=== PATIENT | female | born 1950 | race American Indian/Alaskan Native ===

== ENCOUNTER 2017-11-12 13:48 | Inpatient (IN) | payer BC, MEDICARE, OTHER ==
[2017-11-12 14:17] VITALS: BMI 21.9
--- NOTE | 2017-11-12 14:33 | C.PDOC ---
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 Patient was scheduled for chemotherapy this morning, but sent to ER. Patient is currently complaining of suprapubic abdominal pain and right lower extremity swelling for the past two days. States her leg is more swollen than usual, and has trouble wearing her shoe. She also notes associated dysuria, and 50-60lb weight loss over the past few months. Denies chest pain, shortness of breath, dizziness, numbness, headache, diarrhea, bloody stool, or any other associated symptoms. No other complaints at this time. Time Seen by Provider: 11/12/17 14:06 Chief Complaint (Nursing): Abdominal Pain History Per: Patient, Family History/Exam Limitations: no limitations Onset/Duration Of Symptoms: Days Current Symptoms Are (Timing): Still Present Severity: Moderate Past Medical History Reviewed: Historical Data, Nursing Documentation, Vital Signs Vital Signs: Last Vital Signs Temp 98.7 F 11/12/17 14:16 Pulse 83 11/12/17 15:55 Resp 18 11/12/17 15:55 BP 124/72 11/12/17 15:55 Pulse Ox 100 11/12/17 17:03 - Medical History PMH: HTN Surgical History: Denies: Pacemaker - [facility] Procedures BYPASS TRANSVERSE COLON TO CUTANEOUS, OPEN APPROACH (06/06/17) GAIT TRAINING/FUNCTIONAL AMBULATION TREATMENT (06/11/17) HOME MANAGEMENT TREATMENT (06/11/17) Family History: States: No Known Family Hx - Social History Hx Alcohol Use: No (SOCIAL USE ONLY-WINE) Hx Substance Use: No - Immunization History Hx Tetanus Toxoid Vaccination: No Hx Influenza Vaccination: No Hx Pneumococcal Vaccination: No Review Of Systems Constitutional: Positive for: Weakness, Other (loss of appetite). Negative for : Fever, Chills ENT: Negative for: Throat Pain Cardiovascular: Negative for: Chest Pain Respiratory: Negative for: Shortness of Breath Gastrointestinal: Positive for: Abdominal Pain. Negative for: Vomiting, Diarrhea Genitourinary: Positive for: Dysuria Musculoskeletal: Positive for: Other (right leg swell) Neurological: Negative for: Headache, Dizziness Physical Exam - Physical Exam Appears: Non-toxic, No Acute Distress Skin: Warm, Dry, No Rash, Other (Jaundice) Head: Atraumatic, Normacephalic Eye(s): bilateral: PERRL, EOMI, Scleral Icterus Nose: Normal Oral Mucosa: Moist Lips: Normal Appearing Neck: Normal ROM Chest: Symmetrical Cardiovascular: Rhythm Regular, No Murmur Respiratory: Normal Breath Sounds, No Accessory Muscle Use Gastrointestinal/Abdominal: Soft, Tenderness (Mild-moderate suprapubic), No Guarding, No Rebound, Other (Colostomy is clean, no erythema/discharge.) Extremity: Pedal Edema (2+pitting, B/L), No Deformity Neurological/Psych: Oriented x3, Normal Speech ED Course And Treatment - Laboratory Results Result Diagrams: 11/12/17 16:10 11/12/17 16:10 ECG: Interpreted By Me, Viewed By Me ECG Rhythm: Sinus Rhythm ECG Interpretation: No Acute Changes Rate From EC O2 Sat by Pulse Oximetry: 100 (RA) Pulse Ox Interpretation: Normal - Radiology CXR: Interpreted by Me, Viewed By Me CXR Interpretation: Yes: No Acute Disease. No: Infiltrates, Cardiomegaly, Pnemothorax Disposition Counseled Patient/Family Regarding: Studies Performed, Diagnosis - Disposition Disposition: HOSPITALIZED Disposition Time: 17:02 Condition: STABLE - POA Present On Arrival: None - Clinical Impression Clinical Impression: Hypokalemia, Failure to thrive - Scribe Statement The provider has reviewed the documentation as recorded by the Scribe (Xiao Rodriguez) All medical record entries made by the Scribe were at my direction and personally dictated by me. I have reviewed the chart and agree that the record accurately reflects my personal performance of the history, physical exam, medical decision making, and the department course for this patient. I have also personally directed, reviewed, and agree with the discharge instructions and disposition. Decision To Admit - Pt Status Changed To: Hospital Disposition Of: Observation - . Bed Request Type: Regular Admitting Physician: Yohan Carrillo Patient Diagnosis: Hypokalemia, Failure to thrive
[2017-11-12] MEDS ORDERED: Sodium Chloride 0.9% 250 ML IV ONE (16:14)
[2017-11-12 16:15] LABS: EOS % 0.3 % (0.0-4.0); HEMOGLOBIN 12.4 g/dL (11.0-16.0); LYMPH % 77.6 % (20.0-40.0); MEAN CORPUSCULAR HEMOGLOBIN 32.8 pg (27.0-31.0); MEAN CORPUSCULAR HGB CONC 36.1 g/dL (33.0-37.0); MEAN PLATELET VOLUME 7.7 fL (7.2-11.7); MONO # 0.2 K/uL (0.0-0.8); MONO % 14.5 % (0.0-10.0); NEUT # 0.1 K/uL (1.8-7.0); NEUT % 7.6 % (50.0-75.0); NRBC % 0.1 % (0.0-2.0); PLATELET COUNT 188 K/uL (130-400); RBC 3.79 Mil/uL (3.80-5.20); RED CELL DISTRIBUTION WIDTH 21.7 % (11.5-14.5)
[2017-11-12] MEDS ORDERED: Sodium Chloride 0.9% 500 ML IV ONE (16:26)
[2017-11-12 16:36] LABS: VENOUS BLOOD GAS BASE EXCESS -7.4 mmol/L (0.0-2.0); VENOUS BLOOD GAS PCO2 32 mmHg (40-60); VENOUS BLOOD GAS PO2 49 mm/Hg (30-55); VENOUS BLOOD PH 7.34 (7.32-7.43)
[2017-11-12 16:36] LABS: MEAN CELL VOLUME 90.9 fL (81.0-99.0); WHITE BLOOD COUNT 1.3 K/uL (4.8-10.8)
[2017-11-12 16:37] LABS: ALB/GLOB RATIO 0.7 (1.0-2.1); ALBUMIN 2.9 g/dL (3.5-5.0)
[2017-11-12] MEDS ORDERED: Potassium Chloride 20 mEq/15 ml LIQ UD PO STA (16:42)
--- NOTE | 2017-11-12 16:50 | RAD ---
PROCEDURE: CHEST RADIOGRAPH, 1 VIEW HISTORY: FAILURE TO THRIVE HO MET CA COMPARISON: None available. FINDINGS: LUNGS: Clear. PLEURA: No pneumothorax or pleural fluid seen. CARDIOVASCULAR: Normal heart size right central line tip approximate cavoatrial junction OSSEOUS STRUCTURES: No significant abnormalities. VISUALIZED UPPER ABDOMEN: Normal. OTHER FINDINGS: None. IMPRESSION: No acute cardiopulmonary pathology appreciated. Right central line apparent Port-A-Cath type tip cavoatrial junction. Pneumothorax
[2017-11-12 17:05] LABS: LYMPHOCYTE 22 % (20-40); MONOCYTE 4 % (0-10); NEUTROPHIL 74 % (50-75); TOTAL CELLS COUNTED 50
[2017-11-12 17:06] LABS: ANISOCYTOSIS SLIGHT; PLATELET ESTIMATE NORMAL (NORMAL); POIKILOCYTOSIS SLIGHT; TARGET CELLS SLIGHT
[2017-11-12 17:07] LABS: MICROCYTOSIS SLIGHT
[2017-11-12 17:16] LABS: SQUAMOUS EPITHIAL 4 /hpf (0-5); URINE BACTERIA RARE (<OCC)
[2017-11-12 17:17] LABS: URINE CLARITY SL HAZY (Clear); URINE COLOR YELLOW (YELLOW)
[2017-11-12 17:18] LABS: PH,URINE 6.5 (5.0-8.0); URINE BILIRUBIN LARGE (NEGATIVE); URINE BLOOD NEGATIVE (NEGATIVE); URINE GLUCOSE (UA) 100 mg/dL (Normal); URINE LEUKOCYTE ESTERASE MODERATE Leu/uL (Negative); URINE NITRATE NEGATIVE (NEGATIVE); URINE PROTEIN 30 mg/dL (NEGATIVE); URINE UROBILINOGEN 0.2 mg/dL (0.2-1.0)
[2017-11-12] MEDS ORDERED: Potassium Chloride 20 mEq/15 ml LIQ UD ONE (18:54)
[2017-11-12] MEDS ORDERED: Morphine 4 MG/ML VIAL ONE (19:13)
[2017-11-12] MEDS ORDERED: [UNRECOGNIZED DRUG - SUPPLY] MC PRN (20:56)
[2017-11-12] MEDS: Potassium Chl 40 mEq in D5-1/2 1,000 ML IV SCH (22:00)
--- NOTE | 2017-11-12 22:39 | CP.PCM.HP ---
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 Patient was scheduled for chemotherapy this morning, but sent to ER. Patient is currently complaining of suprapubic abdominal pain and right lower extremity swelling for the past two days. States her leg is more swollen than usual, and has trouble wearing her shoe. She also notes associated dysuria, and 50-60lb weight loss over the past few months. Denies chest pain, shortness of breath, dizziness, numbness, headache, diarrhea, bloody stool, or any other associated symptoms. No other complaints at this time. T Present on Admission - Present on Admission Any Indicators Present on Admission: Yes Review of Systems - Review of Systems Systems not reviewed;Unavailable: Acuity of Condition - Constitutional Constitutional: Fatigue, Lethargy, Weakness - EENT Eyes: absent: As Per HPI, Blind Spots, Blurred Vision, Change in Vision, Decreased Night Vision, Diplopia, Discharge, Dry Eye, Exophthalmos, Floaters, Irritation, Itchy Eyes, Loss of Peripheral Vision, Pain, Photophobia, Requires Corrective Lenses, Sees Flashes, Spots in Vision, Tunnel Vision, Other Visual Disturbances, Loss of Vision, Other - Cardiovascular Cardiovascular: Dyspnea, Dyspnea on Exertion - Gastrointestinal Gastrointestinal: absent: As Per HPI, Abdominal Pain, Belching, Bloating, Change in Bowel Habits, Change in Stool Character, Coffee Ground Emesis, Constipation, Cramping, Diarrhea, Dyspepsia, Dysphagia, Early Satiety, Excessive Flatus, Fecal Incontinence, Heartburn, Hematemesis, Hematochezia, Loose Stools, Melena, Nausea, Odynophagia, Temesmus, Vomiting, Other - Genitourinary Genitourinary: absent: As Per HPI, Change in Urinary Stream, Difficulty Urinating, Dysuria, Flank Pain, Hematuria, Pyuria, Nocturia, Urinary Incontinence, Urinary Frequency, Urinary Hesitance, Urinary Urgency, Voiding Freq/Small Amts, Freq UTI, Hx Renal/Bladder Calculi, Hx /Renal Surgery, Bladder Distension, Other Past Patient History - Infectious Disease Hx of Infectious Diseases: None - Past Social History Smoking Status: Former Smoker - CARDIAC Hx Hypertension: Yes Hx Pacemaker: No - NEUROLOGICAL Hx Paralysis: No - HEMATOLOGICAL/ONCOLOGICAL Hx Blood Transfusions: No Hx Blood Transfusion Reaction: No - MUSCULOSKELETAL/RHEUMATOLOGICAL Hx Falls: No - GASTROINTESTINAL Hx Gastrointestinal Disorders: Yes (06/09/17 lap colostomy) - GENITOURINARY/GYNECOLOGICAL Other/Comment: colon cancer on chemo - PSYCHIATRIC Hx Substance Use: No - SURGICAL HISTORY Hx Surgeries: Yes Hx Vascular Access Device: Yes (R chest port a cath) Other/Comment: 05/2017- abd sx- for bowel obstruction. partial colon removal sec to CA - ANESTHESIA Hx Anesthesia: Yes Hx Anesthesia Reactions: No Hx Malignant Hyperthermia: No Meds Allergies/Adverse Reactions: Allergies Allergy/AdvReac Type Severity Reaction Status Date / Time No Known Allergies Allergy Verified 11/12/17 14:00 Results - Vital Signs Recent Vital Signs: Last Vital Signs Temp 98.7 F 11/12/17 14:16 Pulse 98 H 11/12/17 19:21 Resp 21 11/12/17 19:21 BP 140/71 11/12/17 19:21 Pulse Ox 95 11/12/17 19:21 - Labs Result Diagrams: 11/12/17 16:10 11/12/17 16:10 Labs: Laboratory Results - last 24 hr 11/12/17 11/12/17 11/12/17 16:10 16:10 16:30 WBC 1.3 L* D RBC 3.79 L Hgb 12.4 Hct 34.4 MCV 90.9 D MCH 32.8 H MCHC 36.1 RDW 21.7 H Plt Count 188 MPV 7.7 Neut % (Auto) 7.6 L Lymph % (Auto) 77.6 H Hooker % (Auto) 14.5 H Eos % (Auto) 0.3 Baso % (Auto) 0.0 Neut # (Auto) 0.1 L Lymph # (Auto) 1.0 Hooker # (Auto) 0.2 Eos # (Auto) 0.0 Baso # (Auto) 0.0 Neutrophils % (Manual) 74 Lymphocytes % (Manual) 22 Monocytes % (Manual) 4 Platelet Estimate Normal Poikilocytosis (manual Slight Anisocytosis (manual) Slight Microcytosis (manual) Slight Target Cells Slight pO2 49 VBG pH 7.34 VBG pCO2 32 L VBG HCO3 18.7 VBG Total CO2 18.3 L VBG O2 Sat (Calc) 88.2 H VBG Base Excess -7.4 L VBG Potassium 2.4 L* Glucose 100 Lactate 1.4 Crit Value Called To Nurse bam Crit Value Called By Mikey rt Crit Value Read Back Y Blood Gas Notified Time 1635 Sodium 134 135.0 Potassium 2.4 L* Chloride 104 104.0 Carbon Dioxide 15 L Anion Gap 17 BUN 43 H Creatinine 1.1 Est GFR ( Amer) 60 Est GFR (Non-Af Amer) 49 Random Glucose 97 Calcium 9.0 Total Bilirubin 36.1 H AST 542 H D ALT 284 H D Alkaline Phosphatase 2887 H Total Protein 6.8 Albumin 2.9 L D Globulin 3.9 Albumin/Globulin Ratio 0.7 L Venous Blood Potassium 2.4 L* Urine Color Urine Clarity Urine pH Ur Specific [place] Urine Protein Urine Glucose (UA) Urine Ketones Urine Blood Urine Nitrate Urine Bilirubin Urine Urobilinogen Ur Leukocyte Esterase Urine WBC (Auto) Urine RBC (Auto) Ur Squamous Epith Cells Urine Bacteria 11/12/17 16:55 WBC RBC Hgb Hct MCV MCH MCHC RDW Plt Count MPV Neut % (Auto) Lymph % (Auto) [place] % (Auto) Eos % (Auto) Baso % (Auto) Neut # (Auto) Lymph # (Auto) [place] # (Auto) Eos # (Auto) Baso # (Auto) Neutrophils % (Manual) Lymphocytes % (Manual) Monocytes % (Manual) Platelet Estimate Poikilocytosis (manual Anisocytosis (manual) Microcytosis (manual) Target Cells pO2 VBG pH VBG pCO2 VBG HCO3 VBG Total CO2 VBG O2 Sat (Calc) VBG Base Excess VBG Potassium Glucose Lactate Crit Value Called To Crit Value Called By Crit Value Read Back Blood Gas Notified Time Sodium Potassium Chloride Carbon Dioxide Anion Gap BUN Creatinine Est GFR ( Amer) Est GFR (Non-Af Amer) Random Glucose Calcium Total Bilirubin AST ALT Alkaline Phosphatase Total Protein Albumin Globulin Albumin/Globulin Ratio Venous Blood Potassium Urine Color Yellow Urine Clarity Sl hazy Urine pH 6.5 Ur Specific [place] 1.010 Urine Protein 30 Urine Glucose (UA) 100 Urine Ketones Negative Urine Blood Negative Urine Nitrate Negative Urine Bilirubin Large Urine Urobilinogen 0.2 Ur Leukocyte Esterase Moderate Urine WBC (Auto) 18 H Urine RBC (Auto) 1 Ur Squamous Epith Cells 4 Urine Bacteria Rare Assessment & Plan (1) Weight loss Status: Acute (2) Failure to thrive Status: Acute (3) Hypokalemia Status: Acute (4) S/P colostomy Status: Acute
[2017-11-13] MEDS: Morphine 4 MG/ML VIAL IVP PRN (06:32)
[2017-11-13] MEDS: Potassium Chl 40 mEq in D5-1/2 1,000 ML IV SCH ×2 (07:00→10:30)
--- NOTE | 2017-11-13 11:03 | VASCLAB ---
PROCEDURE: Right Lower Extremity Venous Duplex Exam. HISTORY: SWELLING HO CANCER PRIORS: None. TECHNIQUE: Right common femoral, femoral, popliteal and posterior tibial, peroneal and great saphenous veins were evaluated. Flow was assessed with color Doppler, compressibility, assessment of phasic flow and augmentation response. Report prepared by ORLY Webb, RVT FINDINGS: RIGHT: 1. Common Femoral Vein: 1.1. Compressibility - Fully compressible: Thrombus - None: Flow - Phasic: Augmentation -Normal: Reflux - None. 2. Femoral Vein: 2.1. Compressibility - Fully compressible: Thrombus - None: Flow - Phasic: Augmentation -Normal: Reflux - None. 3. Popliteal Vein: 3.1. Compressibility - Fully compressible: Thrombus - None: Flow - Phasic: Augmentation -Normal: Reflux - None. 4. Posterior Tibial Vein: 4.1. Compressibility - Fully compressible: Thrombus - None: Flow - Phasic: Augmentation -Normal: Reflux - None. 5. Peroneal Vein: 5.1. Compressibility - Fully compressible: Thrombus - None: Flow - Phasic: Augmentation -Normal: Reflux - None. 6. Great Saphenous Vein: 6.1. Compressibility - Fully compressible: Thrombus -None: Flow - Phasic: Augmentation - Normal: Reflux - None. OTHER FINDINGS: IMPRESSION: No evidence of deep or superficial vein thrombosis of the right lower extremity with excellent venous flow. Normal valve function noted of the right side. Normal venous flow noted in the left common femoral vein.
[2017-11-13 12:08] LABS: HEMOGLOBIN 12.2 g/dL (11.0-16.0); MEAN CELL VOLUME 90.6 fL (81.0-99.0); MEAN CORPUSCULAR HEMOGLOBIN 32.3 pg (27.0-31.0); MEAN CORPUSCULAR HGB CONC 35.6 g/dL (33.0-37.0); MEAN PLATELET VOLUME 7.8 fL (7.2-11.7); RBC 3.78 Mil/uL (3.80-5.20); RED CELL DISTRIBUTION WIDTH 21.8 % (11.5-14.5)
[2017-11-13 12:09] LABS: ALB/GLOB RATIO 0.7 (1.0-2.1); ALBUMIN 2.7 g/dL (3.5-5.0); ALT/SGPT 284 U/L (9-52); AST/SGOT 566 U/L (14-36); BLOOD UREA NITROGEN 37 mg/dL (7-17); CALCIUM 9.3 mg/dl (8.6-10.4); GFR AFRICAN-AMERICAN 60; GFR NON-AFRICAN AMERICAN 49
[2017-11-13 12:19] LABS: WHITE BLOOD COUNT 0.8 K/uL (4.8-10.8)
[2017-11-13] MEDS ORDERED: Vancomycin 1 gm/NS 200 ml 1 GM/200 ML BAG IVPB STA (18:12)
[2017-11-13] MEDS: Potassium Ch 20mEq in D5-1/2NS 1,000 ML IV SCH (18:15)
--- NOTE | 2017-11-13 19:21 | CARD ---
APPROVED REPORT EKG Measurement Heart [id number] <Conclusion> Normal sinus rhythm Prolonged QT Abnormal ECG
[2017-11-13] MEDS: Cefepime IV 1 gm in Dextrose 1 GM/50 ML BAG IVPB SCH (19:35)
--- NOTE | 2017-11-13 22:29 | CP.PCM.PN ---
Subjective - Date & Time of Evaluation Date of Evaluation: 11/13/17 Time of Evaluation: 19:40 - Subjective Subjective: Pt seen and examined, pt is weak and lethargic, compaing of chills, rigors, wbc , potassium deranged Objective - Vital Signs/Intake and Output Vital Signs (last 24 hours): Temp Pulse Resp BP Pulse Ox 98.2 F 87 20 118/77 99 11/13/17 16:00 11/13/17 16:00 11/13/17 16:00 11/13/17 16:00 11/13/17 16:00 Intake and Output: 11/13/17 11/14/17 18:59 06:59 Intake Total 1000 Balance 1000 - Medications Medications: Current Medications Heparin Sodium (Porcine) (Heparin) 5,000 units SC Q12 [facility] Last Admin: 11/13/17 21:56 Dose: 5,000 units Potassium Chloride/Dextrose/Sod Cl (Potassium Chl 20 Meq In D5-1/2ns) 1,000 mls @ 100 mls/hr IV .Q10H [facility] Last Admin: 11/13/17 18:15 Dose: 100 mls/hr Cefepime HCl (Maxipime Iv 1 Gm Premix) 1 gm in 50 mls @ 100 mls/hr IVPB Q8H [facility] Last Admin: 11/13/17 19:35 Dose: 100 mls/hr Vancomycin/Sodium Chloride (Vancomycin 1 Gm/Ns 200 Ml) 1 gm in 200 mls @ 133.333 mls/hr IVPB Q12H [facility] Stop: 11/19/17 06:31 Morphine Sulfate (Morphine) 2 mg IVP Q4 PRN PRN Reason: Pain, moderate (4-7) Last Admin: 11/13/17 06:32 Dose: 2 mg - Labs Labs: 11/13/17 11:46 11/13/17 11:46 - Constitutional Appears: Chronically Ill - Head Exam Head Exam: ATRAUMATIC, NORMAL INSPECTION, NORMOCEPHALIC - Eye Exam Eye Exam: EOMI, Normal appearance, PERRL Pupil Exam: NORMAL ACCOMODATION, PERRL - Respiratory Exam Respiratory Exam: Clear to Ausculation Bilateral, NORMAL BREATHING PATTERN - Cardiovascular Exam Cardiovascular Exam: REGULAR RHYTHM, +S1, +S2. absent: Murmur Assessment and Plan (1) Weight loss Status: Acute (2) Failure to thrive Status: Acute (3) Hypokalemia Status: Acute (4) S/P colostomy Status: Acute (5) Liver metastases Status: Acute - Assessment and Plan (Free Text) Plan: rule out sepsis reverse isolation medical managment Iv flids
[2017-11-14] MEDS: Cefepime IV 1 gm in Dextrose 1 GM/50 ML BAG IVPB SCH ×3 (03:05→18:31)
[2017-11-14] MEDS: Morphine 4 MG/ML VIAL IVP PRN (03:24)
[2017-11-14] MEDS: Potassium Ch 20mEq in D5-1/2NS 1,000 ML IV SCH ×3 (04:08→13:30)
[2017-11-14] MEDS: Vancomycin 1 gm/NS 200 ml 1 GM/200 ML BAG IVPB SCH ×2 (05:32→18:31)
[2017-11-14 07:45] LABS: HEMOGLOBIN 12.5 g/dL (11.0-16.0); MEAN CELL VOLUME 90.2 fL (81.0-99.0); MEAN CORPUSCULAR HEMOGLOBIN 32.2 pg (27.0-31.0); MEAN CORPUSCULAR HGB CONC 35.7 g/dL (33.0-37.0); MEAN PLATELET VOLUME 8.3 fL (7.2-11.7); RBC 3.87 Mil/uL (3.80-5.20); RED CELL DISTRIBUTION WIDTH 22.1 % (11.5-14.5)
[2017-11-14 07:53] LABS: WHITE BLOOD COUNT 1.2 K/uL (4.8-10.8)
[2017-11-14 08:23] LABS: CALCIUM 9.4 mg/dl (8.6-10.4)
[2017-11-14] MEDS ORDERED: Potassium Chloride 20 mEq/15 ml LIQ UD PO STA (15:51)
[2017-11-14] MEDS ORDERED: Potassium Chloride 20 mEq/15 ml LIQ UD PO ONE (18:15)
--- NOTE | 2017-11-15 00:02 | CP.PCM.PN ---
Subjective - Date & Time of Evaluation Date of Evaluation: 11/14/17 Time of Evaluation: 19:25 - Subjective Subjective: Patient seen & evaluated at bedside, pt is feeling better, c/o right upper quadrant pain, her potasium is corrected, pt is weak, appetite is poor Objective - Vital Signs/Intake and Output Vital Signs (last 24 hours): Temp Pulse Resp BP Pulse Ox 97.8 F 90 20 106/73 99 11/14/17 16:00 11/14/17 16:00 11/14/17 16:00 11/14/17 16:00 11/14/17 16:00 Intake and Output: 11/14/17 11/15/17 18:59 06:59 Intake Total 940 Balance 940 - Medications Medications: Current Medications Heparin Sodium (Porcine) (Heparin) 5,000 units SC Q12 [facility] Last Admin: 11/14/17 21:22 Dose: 5,000 units Potassium Chloride/Dextrose/Sod Cl (Potassium Chl 20 Meq In D5-1/2ns) 1,000 mls @ 100 mls/hr IV .Q10H [facility] Last Admin: 11/14/17 13:30 Dose: Not Given Cefepime HCl (Maxipime Iv 1 Gm Premix) 1 gm in 50 mls @ 100 mls/hr IVPB Q8H [facility] Last Admin: 11/14/17 18:31 Dose: 100 mls/hr Vancomycin/Sodium Chloride (Vancomycin 1 Gm/Ns 200 Ml) 1 gm in 200 mls @ 133.333 mls/hr IVPB Q12H [facility] Stop: 11/19/17 06:31 Last Admin: 11/14/17 18:31 Dose: 133.333 mls/hr Morphine Sulfate (Morphine) 2 mg IVP Q4 PRN PRN Reason: Pain, moderate (4-7) Last Admin: 11/14/17 03:24 Dose: 2 mg - Labs Labs: 11/14/17 07:27 11/14/17 07:27 - Constitutional Appears: No Acute Distress - Head Exam Head Exam: ATRAUMATIC, NORMAL INSPECTION, NORMOCEPHALIC - Eye Exam Eye Exam: EOMI, Normal appearance, PERRL Pupil Exam: NORMAL ACCOMODATION, PERRL - Respiratory Exam Respiratory Exam: Decreased Breath Sounds, Rales, Rhonchi - Cardiovascular Exam Cardiovascular Exam: REGULAR RHYTHM, +S1, +S2. absent: Murmur - GI/Abdominal Exam GI & Abdominal Exam: Tenderness, Hypoactive Bowel Sounds Assessment and Plan (1) Weight loss Status: Acute (2) Failure to thrive Status: Acute (3) Hypokalemia Status: Acute (4) S/P colostomy Status: Acute (5) Liver metastases Status: Acute
[2017-11-15] MEDS: Potassium Ch 20mEq in D5-1/2NS 1,000 ML IV SCH ×4 (02:06→23:39)
[2017-11-15] MEDS: Cefepime IV 1 gm in Dextrose 1 GM/50 ML BAG IVPB SCH ×2 (02:32→11:14)
[2017-11-15] MEDS: Vancomycin 1 gm/NS 200 ml 1 GM/200 ML BAG IVPB SCH (05:29)
[2017-11-15 07:52] LABS: HEMOGLOBIN 12.3 g/dL (11.0-16.0); MEAN CELL VOLUME 91.9 fL (81.0-99.0); MEAN CORPUSCULAR HEMOGLOBIN 32.8 pg (27.0-31.0); MEAN CORPUSCULAR HGB CONC 35.6 g/dL (33.0-37.0); MEAN PLATELET VOLUME 8.6 fL (7.2-11.7); RBC 3.76 Mil/uL (3.80-5.20)
[2017-11-15 07:53] LABS: CALCIUM 9.4 mg/dl (8.6-10.4)
[2017-11-15 08:00] LABS: WHITE BLOOD COUNT 1.1 K/uL (4.8-10.8)
--- NOTE | 2017-11-15 11:39 | CP.PCM.PN ---
Subjective - Date & Time of Evaluation Date of Evaluation: 11/15/17 Time of Evaluation: 14:00 - Subjective Subjective: pt seen & evalauted at bedside Objective - Vital Signs/Intake and Output Vital Signs (last 24 hours): Temp Pulse Resp BP Pulse Ox 97.6 F 91 H 20 105/69 99 11/15/17 07:47 11/15/17 07:47 11/15/17 07:47 11/15/17 07:47 11/15/17 07:47 Intake and Output: 11/15/17 11/15/17 06:59 18:59 Intake Total 920 Output Total 20 Balance 900 - Medications Medications: Current Medications Heparin Sodium (Porcine) (Heparin) 5,000 units SC Q12 [facility] Last Admin: 11/15/17 11:14 Dose: 5,000 units Potassium Chloride/Dextrose/Sod Cl (Potassium Chl 20 Meq In D5-1/2ns) 1,000 mls @ 100 mls/hr IV .Q10H [facility] Last Admin: 11/15/17 02:34 Dose: 100 mls/hr Cefepime HCl (Maxipime Iv 1 Gm Premix) 1 gm in 50 mls @ 100 mls/hr IVPB Q8H [facility] Last Admin: 11/15/17 11:14 Dose: 100 mls/hr Vancomycin/Sodium Chloride (Vancomycin 1 Gm/Ns 200 Ml) 1 gm in 200 mls @ 133.333 mls/hr IVPB Q12H [facility] Stop: 11/19/17 06:31 Last Admin: 11/15/17 05:29 Dose: 133.333 mls/hr Morphine Sulfate (Morphine) 2 mg IVP Q4 PRN PRN Reason: Pain, moderate (4-7) Last Admin: 11/14/17 03:24 Dose: 2 mg - Labs Labs: 11/15/17 07:11 11/15/17 07:11 Assessment and Plan (1) Weight loss Status: Acute (2) Failure to thrive Status: Acute (3) Hypokalemia Status: Acute (4) S/P colostomy Status: Acute (5) Liver metastases Status: Acute
[2017-11-15] MEDS: Morphine 4 MG/ML VIAL IVP PRN ×2 (15:12→19:42)
[2017-11-16] MEDS: Potassium Ch 20mEq in D5-1/2NS 1,000 ML IV SCH ×2 (06:23→16:55)
[2017-11-16 07:17] LABS: HEMOGLOBIN 11.1 g/dL (11.0-16.0); MEAN CELL VOLUME 91.4 fL (81.0-99.0); MEAN CORPUSCULAR HEMOGLOBIN 32.7 pg (27.0-31.0); MEAN CORPUSCULAR HGB CONC 35.8 g/dL (33.0-37.0); MEAN PLATELET VOLUME 8.7 fL (7.2-11.7); RBC 3.38 Mil/uL (3.80-5.20); RED CELL DISTRIBUTION WIDTH 21.3 % (11.5-14.5)
[2017-11-16 07:20] LABS: WHITE BLOOD COUNT 0.6 K/uL (4.8-10.8)
[2017-11-16 08:34] LABS: CALCIUM 9.3 mg/dl (8.6-10.4)
--- NOTE | 2017-11-16 09:37 | CON ---
DATE: 11/13/2017 ONCOLOGY CONSULTATION HISTORY OF PRESENT ILLNESS: This is a 67-year-old, who I have been treating for colon cancer for the last 5 years. She presented 5 years ago with colon cancer, metastatic to liver and to her lungs; and over the last 5 years, she received many kinds of chemotherapy. She also received radiofrequency ablation for several lesions in the liver. This was done about 2-1/2 to 3 years ago. Basically, in the last few months, she has had progressive cancer in her liver, in her lungs and we changed her chemotherapy recently, but this is proved to be ineffective furthermore. About 6 months ago, she had emergency surgery for progressive cancer in her pelvis with an obstruction, so she has progressive cancer at this point. She came to the office yesterday with neon yellow eyes and marked weakness, she can barely stand up, she is so dehydrated and weak, and we admitted her to the hospital. Her blood tests are remarkable for several things. Her pO2 on blood gas was 49, pH was 7.34 acidotic with severe decreased oxygen levels. LABORATORY DATA: Her labs showed a potassium of 2.4, BUN of 43 with a creatinine of 1.1, bilirubin is , AST is 524, ALT 280, alkaline phosphatase 2800. She has had a CAT scan before to rule out biliary obstruction, but she has progressive cancer in liver as well, as well as paraaortic lymph nodes. Her white count is 1.3 with markedly decreased neutrophils, this is probably secondary to her chemotherapy that she received. Hemoglobin 12.4 secondary to dehydration, higher than it should be. She has an asterixis. PHYSICAL EXAMINATION: SKIN: No petechiae. No bruises. HEENT: Shows neon icterus. NODES: Nonpalpable in the axillary, cervical, supraclavicular or inguinal regions. LUNGS: Pretty clear at present, though some scattered wheezing. HEART: S1 and S2. ABDOMEN: Shows distended liver. EXTREMITIES: +2 edema. CENTRAL NERVOUS SYSTEM: The patient has asterixis. She knows who I am, she can barely speak. She is just lying in bed, profoundly weak, not able to eat at all. ASSESSMENT: I spoke with the yesterday in the office and I feel that she is terminal that I do not feel she is going to live very much longer, that there is no more chemotherapy available and then when she gets to the hospital, they have to discuss terminal care provisions and hospice and I have recommended that at this point. I will give her IV hydration to bring down the BUN, but I think at this point she is considered terminal and they will go hospice, and the is aware of this and agrees with me. Shane Apodaca MD
[2017-11-16] MEDS: Morphine 4 MG/ML VIAL IVP PRN ×2 (09:43→18:29)
[2017-11-16] MEDS ORDERED: Influenza Vaccine 60 mcg/0.5 mL SYR (4YR UP) IM ONE (10:00)
--- NOTE | 2017-11-16 11:18 | CP.PCM.CON ---
History of Present Illness - History of Present Illness History of Present Illness: Palliative consult requested by for the goals of care discussion and possible hospice placement. Patient is 67 years old -[place] lady admitted from Dr. Apodaca office where was found to be generally weak. On admission patient complained of suprapubic pain, right lower extremities edema,and it was reported weight loss of 50-60 pounds over the 2-3 months. Patient also complained of nausea and poor appetite. Patient was found with white blood count of 0.6 and placed on reversed contact isolation. Dr. Apodaca suggested the comfort care and the family meeting was held today. Past medical history: colon cancer in 2013 minutes to believe ,Metastases to the liver, hypertension, colostomy creation Social history : lives alone, single, for more siblings, 2 sisters in [place], 2 brothers here in [place], Family history: denied cancer in the family, mother with high blood pressure, both parents Review of Systems - Review of Systems All systems: reviewed and no additional remarkable complaints except Review of Systems: review of system obtained from From nursing due to patient's lethargy.Per nursing patients remained weak with poor appetite, daytime sleepiness Past Patient History - Infectious Disease Hx of Infectious Diseases: None - Past Medical History & Family History Past Medical History?: Yes - Past Social History Smoking Status: Former Smoker - CARDIAC Hx Hypertension: Yes Hx Pacemaker: No - NEUROLOGICAL Hx Paralysis: No - HEMATOLOGICAL/ONCOLOGICAL Hx Blood Transfusions: No Hx Blood Transfusion Reaction: No - MUSCULOSKELETAL/RHEUMATOLOGICAL Hx Falls: No - GASTROINTESTINAL Hx Gastrointestinal Disorders: Yes (06/09/17 lap colostomy) - GENITOURINARY/GYNECOLOGICAL Other/Comment: colon cancer on chemo - PSYCHIATRIC Hx Substance Use: No - SURGICAL HISTORY Hx Surgeries: Yes Hx Vascular Access Device: Yes (R chest port a cath) Other/Comment: 05/2017- abd sx- for bowel obstruction. partial colon removal sec to CA - ANESTHESIA Hx Anesthesia: Yes Hx Anesthesia Reactions: No Hx Malignant Hyperthermia: No Meds Allergies/Adverse Reactions: Allergies Allergy/AdvReac Type Severity Reaction Status Date / Time No Known Allergies Allergy Verified 11/12/17 14:00 - Medications Medications: Current Medications Potassium Chloride/Dextrose/Sod Cl (Potassium Chl 20 Meq In D5-1/2ns) 1,000 mls @ 100 mls/hr IV .Q10H [facility] Last Admin: 11/16/17 06:23 Dose: 100 mls/hr Morphine Sulfate (Morphine) 2 mg IVP Q4 PRN PRN Reason: Pain, moderate (4-7) Last Admin: 11/16/17 09:43 Dose: 2 mg Physical Exam - Constitutional Appears: No Acute Distress, Chronically Ill - Head Exam Head Exam: ATRAUMATIC, NORMAL INSPECTION, NORMOCEPHALIC - Eye Exam Eye Exam: EOMI, Normal appearance Pupil Exam: NORMAL ACCOMODATION, PERRL - ENT Exam ENT Exam: Mucous Membranes Dry - Neck Exam Neck exam: Positive for: Normal Inspection - Respiratory Exam Respiratory Exam: Decreased Breath Sounds, NORMAL BREATHING PATTERN - GI/Abdominal Exam Additional comments: Stoma in situ, bulging, colostomy appliances in place - Rectal Exam Rectal Exam: Deferred - Extremities Exam Additional comments: right leg edema - Back Exam Back exam: NORMAL INSPECTION - Neurological Exam Neurological exam: Alert, Altered, Motor Sensory Deficit - Psychiatric Exam Psychiatric exam: Flat Affect - Skin Skin Exam: Pallor Results - Vital Signs Recent Vital Signs: Last Vital Signs Temp 97.4 F L 11/16/17 08:19 Pulse 88 11/16/17 08:19 Resp 20 11/16/17 08:19 BP 99/67 L 11/16/17 08:19 Pulse Ox 95 11/16/17 08:19 - Labs Result Diagrams: 11/16/17 06:58 11/16/17 06:58 Labs: Laboratory Results - last 24 hr 11/16/17 11/16/17 06:58 06:58 WBC 0.6 L* RBC 3.38 L Hgb 11.1 Hct 30.9 L MCV 91.4 MCH 32.7 H MCHC 35.8 RDW 21.3 H Plt Count 119 L D MPV 8.7 Sodium 139 Potassium 3.5 L Chloride 115 H Carbon Dioxide 13 L Anion Gap 15 BUN 44 H Creatinine 1.9 H Est GFR ( Amer) 32 Est GFR (Non-Af Amer) 26 Random Glucose 80 Calcium 9.3 Assessment & Plan - Assessment and Plan (Free Text) Assessment: palliative consult Called status before consult was a 4 cold.The PPS 10%. There is no advanced directive on chart. I reviewed medical records, all diagnostic studies, EXAMINED PATIENT IN THE BED, DISCUSSED HER CONDITION WITH INSIDE SALES ASSISTANT, AND held FAMILY meeting for goals of care discussion. Patient is alert but looks tired and very sleepy. Patient was able to her knowledge my presence by noddi but never opened her eyes and had not eaten her breakfast. The physical exam reveals chronic calyceal patient. There is no acute distress. Breath sounds are diminished. No cough noted. The oral mucosa is very GI. Abdomen is softly distended with colostomy in place. The stoma is bulging annulus functioning. Bowel sounds are decreased. Nursing patiey poor appetite and barmething.There is edema to the right leg. patient denies painWhite blood count 0.6, hemoglobin 11.1, platelets 119, potassium 3.4 and is being replaced, BUN 44, creatinine 1.9, ALP and AST are elevated. Blood pressure remains low 99/67. Temperature 97.4. Oxygen saturation 95% on room air. Family meeting held today for goals of care discussion. Family meeting was attended by 2 brothers and 2 sisters, and myself. The 2 sisters live in [place] and they came just to visit the patient. 2 brothers leave in [place] and they are visiting patient more often. The family chose one of the brothers, Mr. Platt be a spoke person for the family. His contact contact # [phone]. I reviewed patient's present medical condition and elicited families knowledge about patient's condition. Family stated they talked to and were made aware about patient's terminal condition and very poor prognosis. Family was very united in their wishes to keep the patient comfortable at these last stage of life. I offered more information about the hospice care. Family admitted it was level of care they would like for the patient. We discussed different placement for the hospice care, home hospice versus hospice at the facility. [facility] due to the patient leaves home alone and they are not able to help her with her care. We discussed the CODE STATUS. Family was very clear that they wouldn't want any aggressive treatment interventions for this patient. I discussed meaning of the CODE status and offered more information about the POLST Family chose the DNR/DNI. I provided the family with a copy of that POLST. I discussed this with Tabitha from case management.She was to continue discussion about the placement at the [facility] and to call the hospice for the hospice evaluation. This was shared with Dr. Carrillo Advanced care discussion, 45 minutes. Thank you very much for consultation the palliative care.
--- NOTE | 2017-11-16 22:56 | CP.PCM.PN ---
Subjective - Date & Time of Evaluation Date of Evaluation: 11/16/17 Time of Evaluation: 21:00 - Subjective Subjective: Pt seen and evalauted by palliative care too, pt is terminal and she is for hospice Objective - Vital Signs/Intake and Output Vital Signs (last 24 hours): Temp Pulse Resp BP Pulse Ox 97.4 F L 87 20 99/64 L 98 11/16/17 15:00 11/16/17 15:00 11/16/17 15:00 11/16/17 15:00 11/16/17 15:00 Intake and Output: 11/16/17 11/17/17 18:59 06:59 Intake Total 850 Balance 850 - Medications Medications: Current Medications Potassium Chloride/Dextrose/Sod Cl (Potassium Chl 20 Meq In D5-1/2ns) 1,000 mls @ 100 mls/hr IV .Q10H [facility] Last Admin: 11/16/17 16:55 Dose: Not Given Morphine Sulfate (Morphine) 2 mg IVP Q4 PRN PRN Reason: Pain, moderate (4-7) Last Admin: 11/16/17 18:29 Dose: 2 mg - Labs Labs: 11/16/17 06:58 11/16/17 06:58 - Constitutional Appears: Chronically Ill - Head Exam Head Exam: ATRAUMATIC, NORMOCEPHALIC - Eye Exam Eye Exam: EOMI, Normal appearance, PERRL Pupil Exam: NORMAL ACCOMODATION, PERRL - Respiratory Exam Respiratory Exam: Decreased Breath Sounds, Rales, Rhonchi - Cardiovascular Exam Cardiovascular Exam: REGULAR RHYTHM, +S1, +S2. absent: Murmur - GI/Abdominal Exam GI & Abdominal Exam: Distended, Soft, Tenderness, Normal Bowel Sounds - Rectal Exam Rectal Exam: Deferred Assessment and Plan (1) Weight loss Status: Acute (2) Failure to thrive Status: Acute (3) Hypokalemia Status: Acute (4) S/P colostomy Status: Acute (5) Liver metastases Status: Acute
[2017-11-17] MEDS: Potassium Ch 20mEq in D5-1/2NS 1,000 ML IV SCH ×5 (02:25→21:44)
[2017-11-17] MEDS: Morphine 4 MG/ML VIAL IVP PRN ×3 (02:57→21:16)
--- NOTE | 2017-11-17 23:01 | CP.PCM.PN ---
Subjective - Date & Time of Evaluation Date of Evaluation: 11/17/17 Time of Evaluation: 18:40 - Subjective Subjective: Pt seen and evaluated at bedside today Objective - Vital Signs/Intake and Output Vital Signs (last 24 hours): Temp Pulse Resp BP Pulse Ox 97 F L 90 20 77/58 L 95 11/17/17 16:09 11/17/17 16:09 11/17/17 16:09 11/17/17 16:09 11/17/17 16:09 Intake and Output: 11/17/17 11/18/17 18:59 06:59 Intake Total 825 800 Balance 825 800 - Medications Medications: Current Medications Potassium Chloride/Dextrose/Sod Cl (Potassium Chl 20 Meq In D5-1/2ns) 1,000 mls @ 100 mls/hr IV .Q10H [facility] Last Admin: 11/17/17 21:44 Dose: Not Given Morphine Sulfate (Morphine) 2 mg IVP Q4 PRN PRN Reason: Pain, moderate (4-7) Last Admin: 11/17/17 21:16 Dose: 2 mg - Labs Labs: 11/16/17 06:58 11/16/17 06:58 Assessment and Plan (1) Weight loss Status: Acute (2) Failure to thrive Status: Acute (3) Hypokalemia Status: Acute (4) S/P colostomy Status: Acute (5) Liver metastases Status: Acute
[2017-11-18] MEDS: Potassium Ch 20mEq in D5-1/2NS 1,000 ML IV SCH ×4 (03:45→19:06)
[2017-11-18 08:14] LABS: EOS % 0.2 % (0.0-4.0); HEMOGLOBIN 10.7 g/dL (11.0-16.0); LYMPH # 1.5 K/uL (1.0-4.3); LYMPH % 85.5 % (20.0-40.0); MEAN CELL VOLUME 92.4 fL (81.0-99.0); MEAN CORPUSCULAR HEMOGLOBIN 32.5 pg (27.0-31.0); MEAN CORPUSCULAR HGB CONC 35.1 g/dL (33.0-37.0); MONO # 0.2 K/uL (0.0-0.8); NEUT # 0.1 K/uL (1.8-7.0); NEUT % 3.3 % (50.0-75.0); NRBC % 2.4 % (0.0-2.0); PLATELET COUNT 132 K/uL (130-400); RBC 3.31 Mil/uL (3.80-5.20); RED CELL DISTRIBUTION WIDTH 21.8 % (11.5-14.5)
[2017-11-18 08:26] LABS: WHITE BLOOD COUNT 1.7 K/uL (4.8-10.8)
[2017-11-18 09:03] LABS: ALB/GLOB RATIO 0.7 (1.0-2.1); ALBUMIN 2.3 g/dL (3.5-5.0); CALCIUM 9.2 mg/dl (8.6-10.4)
[2017-11-18 09:28] LABS: LYMPHOCYTE 20 % (20-40); MONOCYTE 15 % (0-10); NEUTROPHIL 65 % (50-75); NUCLEATED RED BLOOD CELL 1 % (0-0); TOTAL CELLS COUNTED 100
[2017-11-18 09:29] LABS: ANISOCYTOSIS SLIGHT; PLATELET ESTIMATE NORMAL (NORMAL)
[2017-11-18 09:30] LABS: HYPOCHROMIC SLIGHT; POLYCHROMIC SLIGHT
[2017-11-18 09:31] LABS: TARGET CELLS MODERATE
[2017-11-18] MEDS: Morphine 4 MG/ML VIAL IVP PRN ×2 (10:59→15:02)
--- NOTE | 2017-11-18 23:42 | CP.PCM.PN ---
Subjective - Date & Time of Evaluation Date of Evaluation: 11/18/17 Time of Evaluation: 19:00 - Subjective Subjective: Pt seen and examined, is terminal for DNR, DNI and hospice care will be transferred when accepted Objective - Vital Signs/Intake and Output Vital Signs (last 24 hours): Temp Pulse Resp BP Pulse Ox 97.6 F 84 20 100/55 L 96 11/18/17 16:42 11/18/17 16:42 11/18/17 16:42 11/18/17 16:42 11/18/17 16:42 Intake and Output: 11/18/17 11/19/17 18:59 06:59 Intake Total 800 800 Balance 800 800 - Medications Medications: Current Medications Potassium Chloride/Dextrose/Sod Cl (Potassium Chl 20 Meq In D5-1/2ns) 1,000 mls @ 100 mls/hr IV .Q10H [facility] Last Admin: 11/18/17 19:06 Dose: Not Given Morphine Sulfate (Morphine) 2 mg IVP Q4 PRN PRN Reason: Pain, moderate (4-7) Last Admin: 11/18/17 15:02 Dose: 2 mg - Labs Labs: 11/18/17 07:53 11/18/17 07:53 - Constitutional Appears: No Acute Distress, Chronically Ill - Head Exam Head Exam: ATRAUMATIC, NORMAL INSPECTION, NORMOCEPHALIC - Eye Exam Eye Exam: EOMI, Normal appearance, PERRL Pupil Exam: NORMAL ACCOMODATION, PERRL - Respiratory Exam Respiratory Exam: Decreased Breath Sounds, Rales, Rhonchi - Cardiovascular Exam Cardiovascular Exam: REGULAR RHYTHM, +S1, +S2, Murmur - GI/Abdominal Exam GI & Abdominal Exam: Soft, Normal Bowel Sounds. absent: Tenderness Assessment and Plan (1) Weight loss Status: Acute (2) Failure to thrive Status: Acute (3) Hypokalemia Status: Acute (4) S/P colostomy Status: Acute (5) Liver metastases Status: Acute
[2017-11-19] MEDS: Potassium Ch 20mEq in D5-1/2NS 1,000 ML IV SCH ×2 (00:39→05:56)
[2017-11-19] MEDS: Morphine 4 MG/ML VIAL IVP PRN (01:19)
[2017-11-19] MEDS: Dextrose 5%/0.45% NS 1,000 ML IV SCH (17:00)
--- NOTE | 2017-11-19 23:40 | CP.PCM.PN ---
Subjective - Date & Time of Evaluation Date of Evaluation: 11/19/17 Time of Evaluation: 19:50 - Subjective Subjective: Pt seen and examined at bedside, pt is not been accepted by hospice, pt is with stage 4 colon cancer on medical management ,pt will be monitored Objective - Vital Signs/Intake and Output Vital Signs (last 24 hours): Temp Pulse Resp BP Pulse Ox 97.2 F L 90 20 100/69 96 11/19/17 16:09 11/19/17 16:09 11/19/17 16:09 11/19/17 16:09 11/19/17 16:09 Intake and Output: 11/19/17 11/20/17 18:59 06:59 Intake Total 700 Balance 700 - Medications Medications: Current Medications Dextrose/Sodium Chloride (Dextrose 5%/0.45% Ns 1000 Ml) 1,000 mls @ 100 mls/hr IV .Q10H [facility] Last Admin: 11/19/17 17:00 Dose: 100 mls/hr Morphine Sulfate (Morphine) 2 mg IVP Q4 PRN PRN Reason: Pain, moderate (4-7) Last Admin: 11/19/17 20:18 Dose: 2 mg - Labs Labs: 11/18/17 07:53 11/18/17 07:53 - Constitutional Appears: No Acute Distress, Chronically Ill - Head Exam Head Exam: ATRAUMATIC, NORMAL INSPECTION, NORMOCEPHALIC - Eye Exam Eye Exam: EOMI, Normal appearance, PERRL Pupil Exam: NORMAL ACCOMODATION, PERRL - Respiratory Exam Respiratory Exam: Decreased Breath Sounds, Rales, Rhonchi - Cardiovascular Exam Cardiovascular Exam: REGULAR RHYTHM, +S1, +S2. absent: Murmur - GI/Abdominal Exam GI & Abdominal Exam: Soft, Tenderness Assessment and Plan (1) Weight loss Status: Acute (2) Failure to thrive Status: Acute (3) Hypokalemia Status: Acute (4) S/P colostomy Status: Acute (5) Liver metastases Status: Acute
[2017-11-20] MEDS: Dextrose 5%/0.45% NS 1,000 ML IV SCH ×4 (03:59→23:56)
--- NOTE | 2017-11-20 22:47 | CP.PCM.PN ---
Subjective - Date & Time of Evaluation Date of Evaluation: 11/20/17 Time of Evaluation: 20:20 - Subjective Subjective: PT SEEN AND EXAMINED AT BEDSIDE, IS TERMINAL, ON MEDICAL MANAGMENT, SUPPORTIVE CARE, SHE IS NOT A CANDIDATE [facility] Objective - Vital Signs/Intake and Output Vital Signs (last 24 hours): Temp Pulse Resp BP Pulse Ox 98.3 F 84 20 99/70 L 97 11/20/17 17:16 11/20/17 17:16 11/20/17 17:16 11/20/17 17:16 11/20/17 17:16 - Medications Medications: Current Medications Dextrose/Sodium Chloride (Dextrose 5%/0.45% Ns 1000 Ml) 1,000 mls @ 100 mls/hr IV .Q10H [facility] Last Admin: 11/20/17 14:17 Dose: 100 mls/hr Morphine Sulfate (Morphine) 2 mg IVP Q4 PRN PRN Reason: Pain, moderate (4-7) Last Admin: 11/20/17 21:18 Dose: 2 mg - Labs Labs: 11/18/17 07:53 11/18/17 07:53 - Constitutional Appears: No Acute Distress, Chronically Ill - Head Exam Head Exam: ATRAUMATIC, NORMAL INSPECTION, NORMOCEPHALIC - Eye Exam Eye Exam: EOMI, Normal appearance, PERRL Pupil Exam: NORMAL ACCOMODATION, PERRL - Respiratory Exam Respiratory Exam: Clear to Ausculation Bilateral, NORMAL BREATHING PATTERN - Cardiovascular Exam Cardiovascular Exam: REGULAR RHYTHM, +S1, +S2. absent: Murmur - GI/Abdominal Exam GI & Abdominal Exam: Soft, Normal Bowel Sounds. absent: Tenderness Assessment and Plan (1) Weight loss Status: Acute (2) Failure to thrive Status: Acute (3) Hypokalemia Status: Acute (4) S/P colostomy Status: Acute (5) Liver metastases Status: Acute
[2017-11-21] MEDS: Dextrose 5%/0.45% NS 1,000 ML IV SCH ×2 (09:00→19:30)
--- NOTE | 2017-11-21 18:57 | CP.PCM.PN ---
Objective - Vital Signs/Intake and Output Vital Signs (last 24 hours): Temp Pulse Resp BP Pulse Ox 96.9 F L 86 14 100/61 100 11/21/17 16:30 11/21/17 16:30 11/21/17 16:30 11/21/17 16:30 11/21/17 16:30 Intake and Output: 11/21/17 11/21/17 06:59 18:59 Intake Total 800 800 Output Total 100 80 Balance 700 720 - Medications Medications: Current Medications Dextrose/Sodium Chloride (Dextrose 5%/0.45% Ns 1000 Ml) 1,000 mls @ 100 mls/hr IV .Q10H [facility] Last Admin: 11/21/17 09:00 Dose: 100 mls/hr Morphine Sulfate (Morphine) 2 mg IVP Q4 PRN PRN Reason: Pain, moderate (4-7) Last Admin: 11/21/17 14:17 Dose: 2 mg - Labs Labs: 11/18/17 07:53 11/18/17 07:53 Assessment and Plan (1) Weight loss Status: Acute (2) Failure to thrive Status: Acute (3) Hypokalemia Status: Acute (4) S/P colostomy Status: Acute (5) Liver metastases Status: Acute
[2017-11-22] MEDS: Dextrose 5%/0.45% NS 1,000 ML IV SCH ×2 (05:48→15:01)
--- NOTE | 2017-11-22 21:05 | CP.PCM.PN ---
Subjective - Date & Time of Evaluation Date of Evaluation: 11/22/17 Time of Evaluation: 10:00 - Subjective Subjective: Pt seen and evalauted family at bedside, on End of life care support discussed with family to opt not to do any more blood tests and just put pt on supportive care Objective - Vital Signs/Intake and Output Vital Signs (last 24 hours): Temp Pulse Resp BP Pulse Ox 97.8 F 92 H 18 91/58 L 97 11/22/17 15:20 11/22/17 15:20 11/22/17 15:20 11/22/17 15:20 11/22/17 15:20 - Medications Medications: Current Medications Morphine Sulfate (Morphine) 2 mg IVP Q4 PRN PRN Reason: Pain, moderate (4-7) Last Admin: 11/21/17 14:17 Dose: 2 mg - Labs Labs: 11/18/17 07:53 11/18/17 07:53 - Constitutional Appears: Chronically Ill - Eye Exam Eye Exam: EOMI, Normal appearance, PERRL Pupil Exam: NORMAL ACCOMODATION, PERRL - Respiratory Exam Respiratory Exam: Decreased Breath Sounds - Cardiovascular Exam Cardiovascular Exam: REGULAR RHYTHM, +S1, +S2. absent: Murmur - GI/Abdominal Exam GI & Abdominal Exam: Soft, Normal Bowel Sounds. absent: Tenderness Assessment and Plan (1) Weight loss Status: Acute (2) Failure to thrive Status: Acute (3) Hypokalemia Status: Acute (4) S/P colostomy Status: Acute (5) Liver metastases Status: Acute
[2017-11-22] MEDS: Morphine 4 MG/ML VIAL IVP PRN (23:52)
[2017-11-23] MEDS: Dextrose 5%/0.45% NS 1,000 ML IV SCH ×3 (02:35→21:08)
[2017-11-23] MEDS: Morphine 4 MG/ML VIAL IVP PRN ×2 (05:02→21:05)
--- NOTE | 2017-11-23 22:54 | CP.PCM.PN ---
Subjective - Date & Time of Evaluation Date of Evaluation: 11/23/17 Time of Evaluation: 18:45 - Subjective Subjective: Pt seen and examined, afberile, no shortness of breath, i discussed with family and they are leaning towards home hospice, they will discuss and give decision tommorow will proceed accordingly Objective - Vital Signs/Intake and Output Vital Signs (last 24 hours): Temp Pulse Resp BP Pulse Ox 97.4 F L 85 20 89/51 L 98 11/23/17 16:00 11/23/17 16:00 11/23/17 16:00 11/23/17 16:00 11/23/17 16:00 - Medications Medications: Current Medications Dextrose/Sodium Chloride (Dextrose 5%/0.45% Ns 1000 Ml) 1,000 mls @ 100 mls/hr IV .Q10H [facility] Last Admin: 11/23/17 21:08 Dose: 100 mls/hr Morphine Sulfate (Morphine) 2 mg IVP Q4 PRN PRN Reason: Pain, moderate (4-7) Last Admin: 11/23/17 21:05 Dose: 2 mg - Labs Labs: 11/18/17 07:53 11/18/17 07:53 - Constitutional Appears: No Acute Distress, Chronically Ill - Eye Exam Eye Exam: EOMI, Normal appearance, PERRL Pupil Exam: NORMAL ACCOMODATION, PERRL - Respiratory Exam Respiratory Exam: Clear to Ausculation Bilateral, NORMAL BREATHING PATTERN - Cardiovascular Exam Cardiovascular Exam: REGULAR RHYTHM, +S1, +S2. absent: Murmur - Neurological Exam Neurological Exam: Altered, CN II-XII Intact - Psychiatric Exam Psychiatric exam: Normal Affect, Normal Mood Assessment and Plan (1) Weight loss Status: Acute (2) Failure to thrive Assessment & Plan: on hospice care/ supportive care Status: Acute (3) Hypokalemia Status: Acute (4) S/P colostomy Status: Acute (5) Liver metastases Status: Acute
[2017-11-24] MEDS: Morphine 4 MG/ML VIAL IVP PRN ×3 (04:06→14:09)
[2017-11-24] MEDS: Dextrose 5%/0.45% NS 1,000 ML IV SCH ×2 (08:04→18:57)
--- NOTE | 2017-11-24 23:43 | CP.PCM.PN ---
Subjective - Date & Time of Evaluation Date of Evaluation: 11/24/17 Time of Evaluation: 17:35 - Subjective Subjective: Pt is seen and examined, weak and lethrgic c/o right upper quadrant pain, on supportive care i discussed with grand daughter and son and they are agreeing on home hospice care they will talk to social work faculty member Objective - Vital Signs/Intake and Output Vital Signs (last 24 hours): Temp Pulse Resp BP Pulse Ox 98.2 F 73 18 81/50 L 96 11/24/17 00:30 11/24/17 16:00 11/24/17 16:00 11/24/17 16:00 11/24/17 16:00 Intake and Output: 11/24/17 11/25/17 18:59 06:59 Intake Total 800 Balance 800 - Medications Medications: Current Medications Dextrose/Sodium Chloride (Dextrose 5%/0.45% Ns 1000 Ml) 1,000 mls @ 100 mls/hr IV .Q10H [facility] Last Admin: 11/24/17 18:57 Dose: 100 mls/hr Morphine Sulfate (Morphine) 2 mg IVP Q4 PRN PRN Reason: Pain, moderate (4-7) Last Admin: 11/24/17 14:09 Dose: 2 mg - Labs Labs: 11/18/17 07:53 11/18/17 07:53 - Constitutional Appears: No Acute Distress, Chronically Ill - Head Exam Head Exam: ATRAUMATIC, NORMAL INSPECTION, NORMOCEPHALIC - Eye Exam Eye Exam: EOMI, Normal appearance, PERRL Pupil Exam: NORMAL ACCOMODATION, PERRL - ENT Exam ENT Exam: Mucous Membranes Moist, Normal Exam - Respiratory Exam Respiratory Exam: Clear to Ausculation Bilateral, NORMAL BREATHING PATTERN - Cardiovascular Exam Cardiovascular Exam: REGULAR RHYTHM, +S1, +S2. absent: Murmur - GI/Abdominal Exam GI & Abdominal Exam: Soft, Tenderness, Normal Bowel Sounds Assessment and Plan (1) Weight loss Status: Acute (2) Failure to thrive Status: Acute (3) Hypokalemia Status: Acute (4) S/P colostomy Status: Acute (5) Liver metastases Status: Acute
[2017-11-25] MEDS: Dextrose 5%/0.45% NS 1,000 ML IV SCH ×2 (04:00→15:02)
--- NOTE | 2017-11-25 14:19 | CP.PCM.PN ---
Subjective - Date & Time of Evaluation Date of Evaluation: 11/25/17 Time of Evaluation: 12:10 - Subjective Subjective: WHEELCHAIR DRIVER NOTIFIED BY PRIMARY RN ZAID THAT PT'S TEMP 92 AND SBP THIS MORNING WAS 70. PT IS CURRENTLY DNR/DNI. I NOTIFIED DR. WEBSTER; FOR NOW KEEP PT COMFORTABLE AND PROVIDE END OF LIFE CARE. [facility] NOTIFIED BY FERNANDEZ POWERS ABOUT PT'S CHANGE IN PRESENTATION. THEY WILL COME AND RE-EVAL HER TODAY AFTER 2 PM. NO FURTHER ORDERS. Objective - Vital Signs/Intake and Output Vital Signs (last 24 hours): Temp Pulse Resp BP Pulse Ox 92.4 F L 69 20 80/45 L 95 11/25/17 08:21 11/25/17 08:21 11/25/17 08:21 11/25/17 11:49 11/25/17 08:21 Intake and Output: 11/25/17 11/25/17 06:59 18:59 Intake Total 800 Balance 800 - Medications Medications: Current Medications Dextrose/Sodium Chloride (Dextrose 5%/0.45% Ns 1000 Ml) 1,000 mls @ 100 mls/hr IV .Q10H [facility] Last Admin: 11/25/17 04:00 Dose: 100 mls/hr Morphine Sulfate (Morphine) 2 mg IVP Q4 PRN PRN Reason: Pain, moderate (4-7) Last Admin: 11/24/17 14:09 Dose: 2 mg - Labs Labs: 11/18/17 07:53 11/18/17 07:53
--- NOTE | 2017-11-25 22:49 | CP.PCM.PN ---
Subjective - Date & Time of Evaluation Date of Evaluation: 11/25/17 Time of Evaluation: 18:00 - Subjective Subjective: pt seen and examined at bedside, she is weak, arousable, in pain, on supportive End of life care, B.P is low Objective - Vital Signs/Intake and Output Vital Signs (last 24 hours): Temp Pulse Resp BP Pulse Ox 97.4 F L 67 18 78/47 L 100 11/25/17 15:59 11/25/17 15:59 11/25/17 15:59 11/25/17 15:59 11/25/17 15:59 Intake and Output: 11/25/17 11/26/17 18:59 06:59 Intake Total 800 Balance 800 - Medications Medications: Current Medications Dextrose/Sodium Chloride (Dextrose 5%/0.45% Ns 1000 Ml) 1,000 mls @ 100 mls/hr IV .Q10H [facility] Last Admin: 11/25/17 15:02 Dose: 100 mls/hr Morphine Sulfate (Morphine) 2 mg IVP Q4 PRN PRN Reason: Pain, moderate (4-7) Last Admin: 11/24/17 14:09 Dose: 2 mg - Labs Labs: 11/18/17 07:53 11/18/17 07:53 - Constitutional Appears: No Acute Distress, Chronically Ill - Head Exam Head Exam: ATRAUMATIC, NORMAL INSPECTION, NORMOCEPHALIC - Eye Exam Eye Exam: EOMI, Normal appearance, PERRL Pupil Exam: NORMAL ACCOMODATION, PERRL - Respiratory Exam Respiratory Exam: Clear to Ausculation Bilateral, NORMAL BREATHING PATTERN - Cardiovascular Exam Cardiovascular Exam: REGULAR RHYTHM, +S1, +S2. absent: Murmur Assessment and Plan (1) Weight loss Status: Acute (2) Failure to thrive Status: Acute (3) Hypokalemia Status: Acute (4) S/P colostomy Status: Acute (5) Liver metastases Status: Acute
[2017-11-26] MEDS: Dextrose 5%/0.45% NS 1,000 ML IV SCH
[2017-11-26 00:55] VITALS: RESP 20
[2017-11-26 09:31] VITALS: BP 51/30; PULSE 66; TEMP 92.2; O2SAT 100
--- NOTE | 2017-11-26 13:38 | CP.PCM.PRO ---
Pronouncement of Note - Clinical Findings Physical Exam: No Response Verbal/Painful Stimuli, Absent Peripheral Pulses{ Carotid & Femoral}, Absent Heart & Breath Sounds, No Pupillary Light Reflex, No Corneal Reflex, Pupils Fixed & Dilated, Absence of Vital Signs - Pronouncement Time Time of Pronouncement of : 12:40 - Notifications Pronouncement Notifications: Family Notified, Atending Notified Double End Sewer Notified: No - Autopsy Autopsy Requested: Yes - [place] [id number]
--- NOTE | 2017-11-26 22:49 | CP.PCM.DIS ---
Provider - Provider Date of Admission: 11/13/17 14:45 Attending physician: Yohan Carrillo MD Diagnosis - Discharge Diagnosis (1) Weight loss Status: Acute (2) Failure to thrive Status: Acute (3) Hypokalemia Status: Acute (4) S/P colostomy Status: Acute (5) Liver metastases Status: Acute Hospital Course - Lab Results Lab Results: Micro Results 11/13/17 20:00 Blood-Venous Blood Culture - Final NO GROWTH AFTER 5 DAYS 11/13/17 20:00 Blood-Venous Gram Stain - Final TEST NOT PERFORMED 11/13/17 19:30 Blood-Venous Blood Culture - Final NO GROWTH AFTER 5 DAYS 11/12/17 14:49 Urine Urine Culture - Final No Growth (<1,000 CFU/ML) Most Recent Lab Values WBC 1.7 K/uL (4.8-10.8) L* D 11/18/17 07:53 RBC 3.31 Mil/uL (3.80-5.20) L 11/18/17 07:53 Hgb 10.7 g/dL (11.0-16.0) L 11/18/17 07:53 Hct 30.6 % (34.0-47.0) L 11/18/17 07:53 MCV 92.4 fL (81.0-99.0) 11/18/17 07:53 MCH 32.5 pg (27.0-31.0) H 11/18/17 07:53 MCHC 35.1 g/dL (33.0-37.0) 11/18/17 07:53 RDW 21.8 % (11.5-14.5) H 11/18/17 07:53 Plt Count 132 K/uL (130-400) 11/18/17 07:53 MPV 9.0 fL (7.2-11.7) 11/18/17 07:53 Neut % (Auto) 3.3 % (50.0-75.0) L 11/18/17 07:53 Lymph % (Auto) 85.5 % (20.0-40.0) H 11/18/17 07:53 [place] % (Auto) 11.0 % (0.0-10.0) H 11/18/17 07:53 Eos % (Auto) 0.2 % (0.0-4.0) 11/18/17 07:53 Baso % (Auto) 0.0 % (0.0-2.0) 11/18/17 07:53 Neut # (Auto) 0.1 K/uL (1.8-7.0) L 11/18/17 07:53 Lymph # (Auto) 1.5 K/uL (1.0-4.3) 11/18/17 07:53 [place] # (Auto) 0.2 K/uL (0.0-0.8) 11/18/17 07:53 Eos # (Auto) 0.0 K/uL (0.0-0.7) 11/18/17 07:53 Baso # (Auto) 0.0 K/uL (0.0-0.2) 11/18/17 07:53 Neutrophils % (Manual) 65 % (50-75) 11/18/17 07:53 Lymphocytes % (Manual) 20 % (20-40) 11/18/17 07:53 Monocytes % (Manual) 15 % (0-10) H 11/18/17 07:53 Nucleated RBC % 1 % (0-0) H 11/18/17 07:53 Platelet Estimate Normal (NORMAL) 11/18/17 07:53 Polychromasia Slight 11/18/17 07:53 Hypochromasia (manual) Slight 11/18/17 07:53 Poikilocytosis (manual Slight 11/12/17 16:10 Anisocytosis (manual) Slight 11/18/17 07:53 Microcytosis (manual) Slight 11/12/17 16:10 Macrocytosis (manual) Slight 11/18/17 07:53 Target Cells Moderate 11/18/17 07:53 Smear Path Review 11/12/17 16:10 pO2 49 mm/Hg (30-55) 11/12/17 16:30 VBG pH 7.34 (7.32-7.43) 11/12/17 16:30 VBG pCO2 32 mmHg (40-60) L 11/12/17 16:30 VBG HCO3 18.7 mmol/L 11/12/17 16:30 VBG Total CO2 18.3 mmol/L (22-28) L 11/12/17 16:30 VBG O2 Sat (Calc) 88.2 % (40-65) H 11/12/17 16:30 VBG Base Excess -7.4 mmol/L (0.0-2.0) L 11/12/17 16:30 VBG Potassium 2.4 mmol/L (3.6-5.2) L* 11/12/17 16:30 Sodium 135.0 mmol/l (132-148) 11/12/17 16:30 Chloride 104.0 mmol/L (98-107) 11/12/17 16:30 Glucose 100 mg/dl (65-105) 11/12/17 16:30 Lactate 1.4 mmol/L (0.7-2.1) 11/12/17 16:30 Crit Value Called To Nurse bam 11/12/17 16:30 Crit Value Called By Mikey lainez 11/12/17 16:30 Crit Value Read Back Y 11/12/17 16:30 Blood Gas Notified Time 1635 11/12/17 16:30 Sodium 139 mmol/L (132-148) 11/18/17 07:53 Potassium 4.1 mmol/L (3.6-5.2) 11/18/17 07:53 Chloride 116 mmol/L (98-107) H 11/18/17 07:53 Carbon Dioxide 11 mmol/L (22-30) L* 11/18/17 07:53 Anion Gap 16 (10-20) 11/18/17 07:53 BUN 49 mg/dL (7-17) H 11/18/17 07:53 Creatinine 2.5 mg/dL (0.7-1.2) H 11/18/17 07:53 Est GFR ( Amer) 23 11/18/17 07:53 Est GFR (Non-Af Amer) 19 11/18/17 07:53 Random Glucose 106 mg/dL (65-105) H 11/18/17 07:53 Calcium 9.2 mg/dl (8.6-10.4) 11/18/17 07:53 Total Bilirubin 25.8 mg/dL (0.2-1.3) H 11/18/17 07:53 AST 372 U/L (14-36) H D 11/18/17 07:53 ALT 259 U/L (9-52) H 11/18/17 07:53 Alkaline Phosphatase 2652 U/L (38-126) H 11/18/17 07:53 Total Protein 5.7 g/dL (6.3-8.3) L 11/18/17 07:53 Albumin 2.3 g/dL (3.5-5.0) L 11/18/17 07:53 Globulin 3.4 gm/dL (2.2-3.9) 11/18/17 07:53 Albumin/Globulin Ratio 0.7 (1.0-2.1) L 11/18/17 07:53 Venous Blood Potassium 2.4 mmol/L (3.6-5.2) L* 11/12/17 16:30 Urine Color Yellow (YELLOW) 11/12/17 16:55 Urine Clarity Sl hazy (Clear) 11/12/17 16:55 Urine pH 6.5 (5.0-8.0) 11/12/17 16:55 Ur Specific [place] 1.010 (1.003-1.030) 11/12/17 16:55 Urine Protein 30 mg/dL (NEGATIVE) 11/12/17 16:55 Urine Glucose (UA) 100 mg/dL (Normal) 11/12/17 16:55 Urine Ketones Negative mg/dL (NEGATIVE) 11/12/17 16:55 Urine Blood Negative (NEGATIVE) 11/12/17 16:55 Urine Nitrate Negative (NEGATIVE) 11/12/17 16:55 Urine Bilirubin Large (NEGATIVE) 11/12/17 16:55 Urine Urobilinogen 0.2 mg/dL (0.2-1.0) 11/12/17 16:55 Ur Leukocyte Esterase Moderate Connie/uL (Negative) 11/12/17 16:55 Urine WBC (Auto) 18 /hpf (0-5) H 11/12/17 16:55 Urine RBC (Auto) 1 /hpf (0-3) 11/12/17 16:55 Ur Squamous Epith Cells 4 /hpf (0-5) 11/12/17 16:55 Urine Bacteria Rare (<OCC) 11/12/17 16:55 - Hospital Course Hospital Course: Pt was on DNR/DNI status on hospice care , today and pronounced ON EXam No Response Verbal/Painful Stimuli, Absent Peripheral Pulses{Carotid & Femoral}, Absent Heart & Breath Sounds, No Pupillary Light Reflex, No Corneal Reflex, Pupils Fixed & Dilated, Absence of Vital Signs Discharge Exam - Head Exam Head Exam: ATRAUMATIC, NORMAL INSPECTION, NORMOCEPHALIC Discharge Plan - Follow Up Plan Condition: GOOD Disposition: WITH WITHOUT AUTOPSY
== END 2017-11-26 18:28 | DRG 436 ==
LOC: C.ER 13:48 → C.9E 17:03 → C.3T 19:11 → OBSVTOIN 11-13 14:45 → C.5S 11-17 07:17
PROVIDERS: ADMIT Internal Medicine; ATTEND Internal Medicine
DX: C78.7 Secondary malignant neoplasm of liver and intrahepatic bile duct (principal); E87.2 Acidosis; E87.6 Hypokalemia; E86.0 Dehydration; I10 Essential (primary) hypertension; R62.7 Adult failure to thrive; Z51.5 Encounter for palliative care; Z66 Do not resuscitate; Z87.891 Personal history of nicotine dependence; Z93.3 Colostomy status; Z85.038 Personal history of other malignant neoplasm of large intestine